=== PATIENT | female | born 1980 | race Caucasian/White ===

== ENCOUNTER 2017-07-05 21:17 | Emergency (ER) | payer MEDICAID ==
[~2017-07-05] VITALS: Ht 157.5 cm; Wt 80.5 kg
[~2017-07-05 21:17] MED LIST: ANTI10DR6 EACH EAR; CLIN-79 PO; CLIN-80 PO; CLIN150C2 PO; CODE120S2 PO; COROTSUS OT; CYCL-1 PO; DIAZ5TAB PO; ERYT400T83 PO; GUAI120015 PO; HYDR-565 PO; HYDR1TAB PO; IBUP-1984 PO; IBUP-1986 PO; NO HOME MEDS
[2017-07-05 21:50] VITALS: BP 140/83
== END 2017-07-06 01:26 | disposition left against medical advice (07) ==
LOC: ER 21:19
DX: M54.9 Dorsalgia, unspecified (principal); Z53.21 Procedure and treatment not carried out due to patient leaving prior to being seen by health care provider

== ENCOUNTER 2018-01-12 19:56 | Emergency (ER) | payer MEDICAID ==
[~2018-01-12] VITALS: Ht 157.5 cm; Wt 66.0 kg
[~2018-01-12 19:56] MED LIST changes: -CLIN-79 PO; -CLIN-80 PO; +CLIN150C8 PO; +CLIN300C85 PO; +HYDR-4353 PO; -HYDR-565 PO
[2018-01-12 20:09] VITALS: BP 131/101
[2018-01-12] MEDS ORDERED: LIDOcaine 1.5% w/epinephrine 1:200,000 5ml ampul IJ ONE (20:25)
[2018-01-12] MEDS ORDERED: CEPH-572 PO (20:29)
[2018-01-12] MEDS ORDERED: SULF1TAB49 PO (20:29)
== END 2018-01-12 21:33 | disposition home or self-care (01) ==
LOC: ER 19:57
DX: L02.415 Cutaneous abscess of right lower limb (principal); Z88.0 Allergy status to penicillin; Z91.018 Allergy to other foods
CPT/HCPCS: 10060; 99283; J3490

== ENCOUNTER 2018-04-03 08:51 | Emergency (ER) | payer MEDICAID ==
[~2018-04-03] VITALS: Ht 157.5 cm; Wt 66.5 kg
[2018-04-03 08:55] VITALS: BP 163/100
[2018-04-03 09:49] LABS: BASOPHILS % (AUTO) 0.7 % (0-1); EOSINOPHILS # (AUTO) 0.1 X10'3 (0-0.9); EOSINOPHILS % (AUTO) 1.6 % (0-6); HEMOGLOBIN 13.3 g/dl (12.0-16.0); LYMPHOCYTES % (AUTO) 29.7 % (21-51); MEAN CORPUSCULAR HEMOGLOBIN 27.6 PG (27.0-31.0); MEAN CORPUSCULAR HGB CONC 32.3 % (33.0-36.5); MEAN CORPUSCULAR VOLUME 85.3 FL (78-98); MEAN PLATELET VOLUME 8.1 FL (7.4-10.4); MONOCYTES # (AUTO) 0.7 X10'3 (0-0.9); NEUTROPHILS # (AUTO) 3.9 X10'3 (1.8-7.7); PLATELET COUNT 281 X10'3 (140-440); RED BLOOD COUNT 4.81 X10'6 (4.20-5.60); WHITE BLOOD COUNT 6.7 X10'3 (4.5-11.0)
[2018-04-03] MEDS ORDERED: ondansetron 4mg rapidly disintigrating tab PO ONE (09:50)
[2018-04-03] MEDS ORDERED: ibuprofen tablet 400 MG TABLET PO ONE (09:50)
[2018-04-03] MEDS ORDERED: HYDROcodone/acetaminophen 5mg/325mg tablet PO ONE (09:50)
[2018-04-03 09:52] LABS: URINE HCG NEGATIVE (NEG)
[2018-04-03 10:00] LABS: PROTHROMBIN TIME 9.9 SECONDS (9.0-12.0)
[2018-04-03 10:03] LABS: CLARITY,URINE CLEAR (Clear); COLOR,URINE YELLOW (Yellow); GLUCOSE, URINE NEGATIVE (Neg); KETONES,URINE TRACE mg/dl (Neg); LEUKOCYTE ESTERASE ,URINE TRACE (Neg); NITRITES, URINE NEGATIVE (Neg); OCCULT BLOOD,URINE NEGATIVE (Neg); PH,URINE 6.5 (4.8-8.0); PROTEIN,URINE NEGATIVE (Neg)
[2018-04-03 10:04] LABS: ALANINE AMINOTRANSFERASE 35 U/L (12-78); ALBUMIN 3.5 G/DL (3.4-5.0); ALBUMIN/GLOBULIN RATIO 0.7 (1.1-1.5); ALKALINE PHOSPHATASE 135 IU/L (46-116); ANION GAP 10 (8-16); ASPARTATE AMINO TRANSFERASE 24 U/L (10-37); BILIRUBIN,TOTAL 0.7 MG/DL (0.1-1.0); BLOOD UREA NITROGEN 10 MG/DL (7-18); BUN/CREATININE RATIO 12.2 (6.6-38.0); CHLORIDE 103 MMOL/L (99-107); CREATININE 0.82 MG/DL (0.40-0.90); GLUCOSE 78 MG/DL (70-104); LIPASE 117 U/L (73-393); POTASSIUM 3.4 MMOL/L (3.5-5.1); SODIUM 139 MMOL/L (135-145); TOTAL CARBON DIOXIDE 25.6 MMOL/L (24-32); TOTAL PROTEIN 8.2 G/DL (6.4-8.2); eGFR 79 ML/MIN
[2018-04-03 10:08] LABS: UA COLLECTION TYPE CLN CATCH MIDSTREAM
[2018-04-03 10:11] LABS: MUCUS STRANDS FEW /LPF (Neg); SQUAMOUS EPITHELIAL CELL,UR FEW /LPF (FEW)
[2018-04-03 10:13] LABS: TRICHOMONAS,URINE FEW /HPF (NEGATIVE)
[2018-04-03 10:14] LABS: BACTERIA,URINE FEW /HPF (Neg); RBC,URINE 0-2 /HPF (0-2)
[2018-04-03] MEDS ORDERED: BISA-155 PO (10:19)
[2018-04-03] MEDS ORDERED: HYDR-3965 PO (10:19)
[2018-04-03] MEDS ORDERED: ONDA8TAB6 PO (10:19)
[2018-04-03] MEDS ORDERED: METR500T PO (10:22)
== END 2018-04-03 10:31 | disposition home or self-care (01) ==
LOC: ER 08:52
DX: R10.31 Right lower quadrant pain (principal); A59.9 Trichomoniasis, unspecified; Z88.0 Allergy status to penicillin; Z91.018 Allergy to other foods; Z79.2 Long term (current) use of antibiotics; Z79.899 Other long term (current) drug therapy; Z98.890 Other specified postprocedural states
CPT/HCPCS: 36415; 80053; 81001; 81025; 83690; 85025; 85610; 87088; 99284

== ENCOUNTER 2018-07-02 10:48 | Emergency (ER) | payer MEDICAID ==
[~2018-07-02] VITALS: Ht 157.5 cm; Wt 62.8 kg
[~2018-07-02 10:48] MED LIST changes: +BISA-155 PO; +CLIN-96 PO; -CLIN300C85 PO; +ONDA8TAB6 PO
[2018-07-02 11:00] VITALS: BP 167/96
[2018-07-02] MEDS ORDERED: azithromycin 250mg tablet PO ONE (11:20)
[2018-07-02] MEDS ORDERED: CefTRIAXone 1000mg IM Kit (w/lidocaine diluent) IM ONE (11:20)
--- NOTE | 2018-07-02 12:03 | NUR ---
PATIENT IS HESITANT TO TAKE PRESCRIBED ANTIBIOTICS (ROCEPHIN AND AZITHROMYCIN) AND STATES THAT SHE DOES NOT WANT TO TAKE ANY MEDICATIONS UNLESS NECESSARY. PATIENT IS CONCERNED THAT MEDS MAY AFFECT . DR. RODRIGUEZ INFORMED OF PATIENT REFUSAL TO RECEIVE ANTIBIOTICS AT THIS TIME.
--- NOTE | 2018-07-02 12:05 | NUR ---
PT REFUSING PELVIC EXAM AND REPORTS SHE WILL BE GOING TO "HER PERSON". DR RODRIGUEZ INFORMED OF PT REFUSAL.
== END 2018-07-02 13:50 | disposition home or self-care (01) ==
LOC: ER 10:49
DX: O20.0 Threatened abortion (principal); F17.200 Nicotine dependence, unspecified, uncomplicated; Z79.899 Other long term (current) drug therapy; Z88.0 Allergy status to penicillin; Z91.018 Allergy to other foods; Z3A.01 Less than 8 weeks gestation of pregnancy
CPT/HCPCS: 36415; 76817; 84702; 87491; 87591; 99284; J0696

== ENCOUNTER 2018-11-05 16:17 | Emergency (ER) | payer MEDICAID ==
[~2018-11-05] VITALS: Ht 157.5 cm; Wt 62.0 kg
[2018-11-05 16:24] VITALS: BP 146/89
[2018-11-05] MEDS ORDERED: TETanus/Pertussis (Acell)/Diphther VAC/PF (Tdap-Adult) 0.5ml syringe IM ONE (17:05)
[2018-11-05] MEDS ORDERED: LIDOcaine 1% w/epiNEPHrine 1:200,000 30ml vial IM ONE (17:05)
[2018-11-05] MEDS ORDERED: CEPH-572 PO (17:23)
[2018-11-05] MEDS ORDERED: SULF1TAB49 PO (17:23)
== END 2018-11-05 17:51 | disposition home or self-care (01) ==
LOC: ER 16:17
DX: L02.31 Cutaneous abscess of buttock (principal); Z98.890 Other specified postprocedural states; Z88.0 Allergy status to penicillin; Z91.011 Allergy to milk products; Z91.018 Allergy to other foods; Z79.899 Other long term (current) drug therapy
CPT/HCPCS: 10060; 99283

== ENCOUNTER 2018-12-24 19:39 | Emergency (ER) | payer MEDICAID ==
[~2018-12-24] VITALS: Ht 157.5 cm; Wt 64.1 kg
[2018-12-24] MEDS ORDERED: ketorolac trometh inj. 60 MG/2 ML VIAL IM ONE (21:35)
[2018-12-24 22:05] VITALS: BP 134/102
== END 2018-12-24 22:07 | disposition home or self-care (01) ==
LOC: ER 19:40
DX: S60.052A Contusion of left little finger without damage to nail, initial encounter (principal); Z98.890 Other specified postprocedural states; Z88.0 Allergy status to penicillin; Z91.011 Allergy to milk products; Z79.899 Other long term (current) drug therapy; W23.0XXA Caught, crushed, jammed, or pinched between moving objects, initial encounter; Y93.89 Activity, other specified; Y92.89 Other specified places as the place of occurrence of the external cause; Y99.9 Unspecified external cause status
CPT/HCPCS: 29130; 73130; 99283; J1885

== ENCOUNTER 2019-01-14 14:59 | Emergency (ER) | payer MEDICAID ==
[~2019-01-14] VITALS: Ht 157.5 cm; Wt 64.1 kg
[2019-01-14] MEDS ORDERED: clindamycin phosphate 150mg/ml inj. IM ONE (15:35)
[2019-01-14] MEDS ORDERED: CEPH500C5 PO (15:41)
[2019-01-14] MEDS ORDERED: SULF1TAB49 PO (15:41)
[2019-01-14 17:30] VITALS: BP 121/70
== END 2019-01-14 17:31 | disposition home or self-care (01) ==
LOC: ER 15:00
DX: L03.116 Cellulitis of left lower limb (principal); Z98.890 Other specified postprocedural states; Z88.0 Allergy status to penicillin; Z91.011 Allergy to milk products; Z79.2 Long term (current) use of antibiotics; Z79.899 Other long term (current) drug therapy
CPT/HCPCS: 96372; 99283; J3490

== ENCOUNTER 2019-03-10 01:38 | Emergency (ER) | payer MEDICAID, OTHER ==
[~2019-03-10] VITALS: Ht 157.5 cm; Wt 63.0 kg
[~2019-03-10 01:38] MED LIST changes: +CLIN-90 PO; -CLIN-96 PO
[2019-03-10 01:41] VITALS: BP 184/118
[2019-03-10] MEDS ORDERED: LOPE2CAP PO (01:57)
== END 2019-03-10 02:09 | disposition home or self-care (01) ==
LOC: ER 01:39
DX: R19.7 Diarrhea, unspecified (principal); R10.9 Unspecified abdominal pain; Z98.890 Other specified postprocedural states; Z88.0 Allergy status to penicillin; Z91.011 Allergy to milk products; Z79.899 Other long term (current) drug therapy
CPT/HCPCS: 99282

== ENCOUNTER 2019-03-19 15:39 | Emergency (ER) | payer OTHER ==
[~2019-03-19] VITALS: Ht 157.5 cm; Wt 65.0 kg
[~2019-03-19 15:39] MED LIST changes: +LOPE2CAP PO
[2019-03-19 16:05] VITALS: BP 148/94
[2019-03-19] MEDS ORDERED: AMOX500C2 PO (17:35)
== END 2019-03-19 17:46 | disposition home or self-care (01) ==
LOC: ER 15:40
DX: K04.7 Periapical abscess without sinus (principal); R50.9 Fever, unspecified; J02.9 Acute pharyngitis, unspecified; Z98.890 Other specified postprocedural states; Z88.0 Allergy status to penicillin; Z91.011 Allergy to milk products; Z79.2 Long term (current) use of antibiotics; Z79.899 Other long term (current) drug therapy
CPT/HCPCS: 99283

== ENCOUNTER 2019-04-02 12:17 | Emergency (ER) | payer MEDICAID, OTHER ==
[~2019-04-02] VITALS: Ht 157.5 cm; Wt 68.5 kg
[~2019-04-02 12:17] MED LIST changes: +AMOX500C2 PO
[2019-04-02 13:16] LABS: BASOPHILS # (AUTO) 0.1 X10'3 (0-0.2); BASOPHILS % (AUTO) 0.5 % (0-1); EOSINOPHILS # (AUTO) 0.1 X10'3 (0-0.9); EOSINOPHILS % (AUTO) 0.8 % (0-6); HEMOGLOBIN 13.1 g/dl (12.0-16.0); LYMPHOCYTES # (AUTO) 3.4 X10'3 (1.1-4.8); LYMPHOCYTES % (AUTO) 36.4 % (21-51); MEAN CORPUSCULAR HEMOGLOBIN 29.2 PG (27.0-31.0); MEAN CORPUSCULAR HGB CONC 32.8 g/dL (33.0-36.5); MONOCYTES # (AUTO) 0.8 X10'3 (0-0.9); MONOCYTES % (AUTO) 8.9 % (2-12); NEUTROPHILS # (AUTO) 4.9 X10'3 (1.8-7.7); NEUTROPHILS % (AUTO) 53.4 % (42-75); PLATELET COUNT 258 X10'3 (140-440); RED CELL DISTRIBUTION WIDTH 14.7 % (11.5-14.5); WHITE BLOOD COUNT 9.2 X10'3 (4.5-11.0)
[2019-04-02 13:18] LABS: URINE HCG POSITIVE (NEG)
[2019-04-02 13:21] LABS: CLARITY,URINE CLEAR (Clear); COLOR,URINE STRAW (Yellow); GLUCOSE, URINE NEGATIVE (Neg); KETONES,URINE NEGATIVE (Neg); LEUKOCYTE ESTERASE ,URINE NEGATIVE (Neg); NITRITES, URINE NEGATIVE (Neg); OCCULT BLOOD,URINE NEGATIVE (Neg); PROTEIN,URINE NEGATIVE (Neg); UROBILINOGEN,URINE 0.2 E.U/dL (0.2-1.0)
[2019-04-02 13:27] LABS: UA COLLECTION TYPE CLN CATCH MIDSTREAM
[2019-04-02 13:33] LABS: ALANINE AMINOTRANSFERASE 22 U/L (12-78); ALBUMIN 3.6 G/DL (3.4-5.0); ALKALINE PHOSPHATASE 86 IU/L (46-116); ANION GAP 9 (8-16); ASPARTATE AMINO TRANSFERASE 17 U/L (10-37); BLOOD UREA NITROGEN 17 MG/DL (7-18); BUN/CREATININE RATIO 23.9 (6.6-38.0); CALCIUM 8.8 MG/DL (8.5-10.1); CHLORIDE 105 MMOL/L (99-107); CREATININE 0.71 MG/DL (0.40-0.90); ETHANOL < 0.010 GM/DL (0.0-0.010); GLUCOSE 94 MG/DL (70-104); POTASSIUM 4.2 MMOL/L (3.5-5.1); SODIUM 139 MMOL/L (135-145); TOTAL CARBON DIOXIDE 25.2 MMOL/L (24-32); TOTAL PROTEIN 7.1 G/DL (6.4-8.2); eGFR > 90 ML/MIN
[2019-04-02 13:34] LABS: URINE AMPHETAMINE SCREEN NEGATIVE (Neg); URINE BARBITUATE SCREEN NEGATIVE (Neg); URINE BENZODIAZEPINES SCREEN NEGATIVE (Neg); URINE CANNABINOID SCREEN NEGATIVE (Neg); URINE COCAINE SCREEN NEGATIVE (Neg); URINE METHADONE SCREEN NEGATIVE (Neg); URINE OPIATE SCREEN NEGATIVE (Neg); URINE PHENCYCLIDINE SCREEN NEGATIVE (Neg)
[2019-04-02 14:06] LABS: ACETAMINOPHEN < 2.0 UG/ML (10-30)
[2019-04-02] MEDS ORDERED: diphenhydrAMINE 25mg capsule PO ONE (14:25)
[2019-04-02] MEDS ORDERED: DIPH25CA83 PO (14:32)
[2019-04-02 14:35] VITALS: BP 156/86
== END 2019-04-02 14:37 | disposition home or self-care (01) ==
LOC: ER 12:18
DX: O9A.219 Injury, poisoning and certain other consequences of external causes complicating pregnancy, unspecified trimester (principal); O99.340 Other mental disorders complicating pregnancy, unspecified trimester; S61.512A Laceration without foreign body of left wrist, initial encounter; Z98.890 Other specified postprocedural states; Z88.0 Allergy status to penicillin; Z91.011 Allergy to milk products; Z79.899 Other long term (current) drug therapy; X83.8XXA Intentional self-harm by other specified means, initial encounter; Y93.89 Activity, other specified; Y92.89 Other specified places as the place of occurrence of the external cause; Y99.8 Other external cause status
CPT/HCPCS: 36415; 80053; 80305; 80320; 80329; 81003; 81025; 85025; 99283

== ENCOUNTER 2019-04-09 17:51 | Emergency (ER) | payer MEDICAID, OTHER ==
[~2019-04-09] VITALS: Ht 157.5 cm; Wt 70.2 kg
[~2019-04-09 17:51] MED LIST changes: +DIPH25CA83 PO
[2019-04-09 18:27] LABS: URINE HCG POSITIVE (NEG)
[2019-04-09 18:28] LABS: CLARITY,URINE CLEAR (Clear); COLOR,URINE STRAW (Yellow); GLUCOSE, URINE NEGATIVE (Neg); KETONES,URINE NEGATIVE (Neg); LEUKOCYTE ESTERASE ,URINE NEGATIVE (Neg); NITRITES, URINE NEGATIVE (Neg); OCCULT BLOOD,URINE TRACE-INTACT (Neg); PROTEIN,URINE NEGATIVE (Neg); UROBILINOGEN,URINE 0.2 E.U/dL (0.2-1.0)
[2019-04-09 18:30] LABS: UA COLLECTION TYPE CLN CATCH MIDSTREAM
[2019-04-09 18:44] LABS: BACTERIA,URINE NONE SEEN /HPF (Neg); RBC,URINE 0-2 /HPF (0-2); SQUAMOUS EPITHELIAL CELL,UR FEW /LPF (FEW); WBC,URINE NONE SEEN /HPF (0-4)
[2019-04-09 20:02] LABS: BASOPHILS # (AUTO) 0.1 X10'3 (0-0.2); BASOPHILS % (AUTO) 0.8 % (0-1); EOSINOPHILS # (AUTO) 0.1 X10'3 (0-0.9); EOSINOPHILS % (AUTO) 1.4 % (0-6); HEMATOCRIT 40.4 % (35.0-45.0); HEMOGLOBIN 13.7 g/dl (12.0-16.0); LYMPHOCYTES # (AUTO) 2.8 X10'3 (1.1-4.8); LYMPHOCYTES % (AUTO) 37.8 % (21-51); MEAN CORPUSCULAR HEMOGLOBIN 29.7 PG (27.0-31.0); MEAN CORPUSCULAR HGB CONC 33.9 g/dL (33.0-36.5); MEAN CORPUSCULAR VOLUME 87.5 FL (78-98); MEAN PLATELET VOLUME 7.9 FL (7.4-10.4); MONOCYTES # (AUTO) 1.1 X10'3 (0-0.9); MONOCYTES % (AUTO) 14.4 % (2-12); NEUTROPHILS # (AUTO) 3.4 X10'3 (1.8-7.7); NEUTROPHILS % (AUTO) 45.6 % (42-75); PLATELET COUNT 202 X10'3 (140-440); RED BLOOD COUNT 4.62 X10'6 (4.20-5.60); RED CELL DISTRIBUTION WIDTH 14.8 % (11.5-14.5); WHITE BLOOD COUNT 7.5 X10'3 (4.5-11.0)
[2019-04-09 20:08] LABS: ALANINE AMINOTRANSFERASE 27 U/L (12-78); ALBUMIN 3.4 G/DL (3.4-5.0); ALBUMIN/GLOBULIN RATIO 0.9 (1.1-1.5); ALKALINE PHOSPHATASE 82 IU/L (46-116); ANION GAP 4 (8-16); ASPARTATE AMINO TRANSFERASE 21 U/L (10-37); BILIRUBIN,TOTAL 0.4 MG/DL (0.1-1.0); BLOOD UREA NITROGEN 13 MG/DL (7-18); BUN/CREATININE RATIO 19.4 (6.6-38.0); CALCIUM 8.3 MG/DL (8.5-10.1); CHLORIDE 107 MMOL/L (99-107); CREATININE 0.67 MG/DL (0.40-0.90); GLUCOSE 81 MG/DL (70-104); POTASSIUM 3.8 MMOL/L (3.5-5.1); SODIUM 140 MMOL/L (135-145); TOTAL CARBON DIOXIDE 28.8 MMOL/L (24-32); eGFR > 90 ML/MIN
[2019-04-09 20:16] VITALS: BP 127/72
== END 2019-04-09 20:48 | disposition home or self-care (01) ==
LOC: ER 17:52
DX: O26.891 Other specified pregnancy related conditions, first trimester (principal); R10.12 Left upper quadrant pain; R10.32 Left lower quadrant pain; O99.331 Smoking (tobacco) complicating pregnancy, first trimester; F17.200 Nicotine dependence, unspecified, uncomplicated; Z3A.01 Less than 8 weeks gestation of pregnancy; Z98.890 Other specified postprocedural states; Z88.0 Allergy status to penicillin; Z91.011 Allergy to milk products
CPT/HCPCS: 29125; 36415; 80053; 81001; 81025; 85025; 99284

== ENCOUNTER 2019-04-23 21:01 | Emergency (ER) | payer MEDICAID ==
[~2019-04-23] VITALS: Ht 157.5 cm; Wt 72.7 kg
[2019-04-23 21:46] LABS: URINE HCG POSITIVE (NEG)
[2019-04-23 21:48] LABS: CLARITY,URINE CLEAR (Clear); COLOR,URINE YELLOW (Yellow); GLUCOSE, URINE NEGATIVE (Neg); KETONES,URINE NEGATIVE (Neg); LEUKOCYTE ESTERASE ,URINE NEGATIVE (Neg); NITRITES, URINE NEGATIVE (Neg); OCCULT BLOOD,URINE NEGATIVE (Neg); PROTEIN,URINE NEGATIVE (Neg); UA COLLECTION TYPE CLN CATCH MIDSTREAM; UROBILINOGEN,URINE 0.2 E.U/dL (0.2-1.0)
[2019-04-23 22:00] LABS: BASOPHILS # (AUTO) 0.1 X10'3 (0-0.2); BASOPHILS % (AUTO) 0.4 % (0-1); EOSINOPHILS # (AUTO) 0.1 X10'3 (0-0.9); EOSINOPHILS % (AUTO) 0.5 % (0-6); HEMATOCRIT 41.1 % (35.0-45.0); HEMOGLOBIN 13.7 g/dl (12.0-16.0); LYMPHOCYTES # (AUTO) 1.8 X10'3 (1.1-4.8); LYMPHOCYTES % (AUTO) 13.9 % (21-51); MEAN CORPUSCULAR HEMOGLOBIN 29.7 PG (27.0-31.0); MEAN CORPUSCULAR HGB CONC 33.4 g/dL (33.0-36.5); MEAN CORPUSCULAR VOLUME 88.9 FL (78-98); MEAN PLATELET VOLUME 7.9 FL (7.4-10.4); MONOCYTES # (AUTO) 0.6 X10'3 (0-0.9); MONOCYTES % (AUTO) 4.2 % (2-12); NEUTROPHILS # (AUTO) 10.6 X10'3 (1.8-7.7); PLATELET COUNT 278 X10'3 (140-440); RED BLOOD COUNT 4.62 X10'6 (4.20-5.60); RED CELL DISTRIBUTION WIDTH 14.6 % (11.5-14.5); WHITE BLOOD COUNT 13.1 X10'3 (4.5-11.0)
[2019-04-23 22:05] LABS: ALANINE AMINOTRANSFERASE 24 U/L (12-78); ALBUMIN 3.8 G/DL (3.4-5.0); ALKALINE PHOSPHATASE 77 IU/L (46-116); ANION GAP 12 (8-16); ASPARTATE AMINO TRANSFERASE 16 U/L (10-37); BILIRUBIN,TOTAL 0.7 MG/DL (0.1-1.0); BLOOD UREA NITROGEN 20 MG/DL (7-18); BUN/CREATININE RATIO 32.3 (6.6-38.0); CALCIUM 8.6 MG/DL (8.5-10.1); CHLORIDE 105 MMOL/L (99-107); CREATININE 0.62 MG/DL (0.40-0.90); GLUCOSE 88 MG/DL (70-104); LIPASE 89 U/L (73-393); POTASSIUM 3.9 MMOL/L (3.5-5.1); SODIUM 142 MMOL/L (135-145); TOTAL CARBON DIOXIDE 25.4 MMOL/L (24-32); TOTAL PROTEIN 7.6 G/DL (6.4-8.2); eGFR > 90 ML/MIN
[2019-04-23] MEDS ORDERED: ondansetron/PF 4mg/2ml inj IV ONE (23:55)
[2019-04-23] MEDS ORDERED: normal saline 1000ML IV soln IVB ONE (23:55)
[2019-04-23 23:57] LABS: MAGNESIUM 1.9 MG/DL (1.5-2.4)
[2019-04-24 01:49] VITALS: BP 119/65
[2019-04-24 02:01] LABS: BETA HCG,QUANTITATIVE 60721 mIU/ml
== END 2019-04-24 01:52 | disposition home or self-care (01) ==
LOC: ER 21:02
DX: O21.9 Vomiting of pregnancy, unspecified (principal); O26.891 Other specified pregnancy related conditions, first trimester; R10.9 Unspecified abdominal pain; F17.200 Nicotine dependence, unspecified, uncomplicated; Z98.890 Other specified postprocedural states; Z88.0 Allergy status to penicillin; Z91.018 Allergy to other foods; Z79.2 Long term (current) use of antibiotics; Z79.899 Other long term (current) drug therapy; Z3A.01 Less than 8 weeks gestation of pregnancy
CPT/HCPCS: 36415; 76801; 80053; 81003; 81025; 83690; 83735; 84702; 85025; 96361; 96374; 99284; J2405; J7030

== ENCOUNTER 2019-05-05 22:49 | Emergency (ER) | payer MEDICAID ==
[~2019-05-05] VITALS: Ht 157.5 cm; Wt 69.8 kg
[~2019-05-05 22:49] MED LIST changes: -AMOX500C2 PO
[2019-05-05 22:51] VITALS: BP 170/97
== END 2019-05-05 23:55 | disposition left against medical advice (07) ==
LOC: ER 22:49
DX: R10.32 Left lower quadrant pain (principal); Z53.21 Procedure and treatment not carried out due to patient leaving prior to being seen by health care provider

== ENCOUNTER 2019-05-19 18:20 | Emergency (ER) | payer MEDICAID ==
[~2019-05-19] VITALS: Ht 157.5 cm; Wt 68.0 kg
--- NOTE | 2019-05-19 19:01 | NUR ---
POISON CONTROL CONTACTED, RECOMMEND CMP, TYLENOL LEVEL, ASPIRIN, WELFARE MANAGER FOR 6HRS FROM TIME OF ARRIVAL
[2019-05-19 19:09] LABS: ALANINE AMINOTRANSFERASE 18 U/L (12-78); ALBUMIN 3.8 G/DL (3.4-5.0); ALBUMIN/GLOBULIN RATIO 1.1 (1.1-1.5); ALKALINE PHOSPHATASE 78 IU/L (46-116); ANION GAP 8 (8-16); ASPARTATE AMINO TRANSFERASE 20 U/L (10-37); BILIRUBIN,TOTAL 0.4 MG/DL (0.1-1.0); BLOOD UREA NITROGEN 7 MG/DL (7-18); BUN/CREATININE RATIO 9.2 (6.6-38.0); CALCIUM 8.8 MG/DL (8.5-10.1); CHLORIDE 107 MMOL/L (99-107); CREATININE 0.76 MG/DL (0.40-0.90); ETHANOL < 0.010 GM/DL (0.0-0.010); GLUCOSE 60 MG/DL (70-104); POTASSIUM 3.3 MMOL/L (3.5-5.1); SODIUM 142 MMOL/L (135-145); TOTAL CARBON DIOXIDE 27.4 MMOL/L (24-32); TOTAL PROTEIN 7.4 G/DL (6.4-8.2); eGFR 86 ML/MIN
[2019-05-19 19:10] LABS: BASOPHILS % (AUTO) 0.5 % (0-1); EOSINOPHILS # (AUTO) 0.2 X10'3 (0-0.9); EOSINOPHILS % (AUTO) 2.1 % (0-6); HEMATOCRIT 39.4 % (35.0-45.0); HEMOGLOBIN 13.2 g/dl (12.0-16.0); LYMPHOCYTES # (AUTO) 3.8 X10'3 (1.1-4.8); LYMPHOCYTES % (AUTO) 44.3 % (21-51); MEAN CORPUSCULAR HEMOGLOBIN 30.1 PG (27.0-31.0); MEAN CORPUSCULAR HGB CONC 33.6 g/dL (33.0-36.5); MEAN CORPUSCULAR VOLUME 89.5 FL (78-98); MEAN PLATELET VOLUME 8.4 FL (7.4-10.4); MONOCYTES # (AUTO) 0.8 X10'3 (0-0.9); MONOCYTES % (AUTO) 9.7 % (2-12); NEUTROPHILS # (AUTO) 3.7 X10'3 (1.8-7.7); NEUTROPHILS % (AUTO) 43.4 % (42-75); PLATELET COUNT 222 X10'3 (140-440); RED CELL DISTRIBUTION WIDTH 13.9 % (11.5-14.5); WHITE BLOOD COUNT 8.5 X10'3 (4.5-11.0)
[2019-05-19 19:11] LABS: ACETAMINOPHEN < 2.0 UG/ML (10-30)
[2019-05-19 19:12] LABS: URINE HCG NEGATIVE (NEG)
[2019-05-19 19:24] LABS: URINE AMPHETAMINE SCREEN POSITIVE (Neg); URINE BARBITUATE SCREEN NEGATIVE (Neg); URINE BENZODIAZEPINES SCREEN POSITIVE (Neg); URINE CANNABINOID SCREEN NEGATIVE (Neg); URINE COCAINE SCREEN NEGATIVE (Neg); URINE METHADONE SCREEN NEGATIVE (Neg); URINE OPIATE SCREEN NEGATIVE (Neg); URINE PHENCYCLIDINE SCREEN NEGATIVE (Neg)
[2019-05-19] MEDS ORDERED: QUET25TA PO (19:25)
[2019-05-19] MEDS ORDERED: DOXY150T5 PO (19:25)
[2019-05-19] MEDS ORDERED: CLON-529 PO (19:25)
[2019-05-19] MEDS ORDERED: DIAZ5TAB4 PO (19:25)
--- NOTE | 2019-05-19 19:49 | NUR ---
Patient with Dr. Toledo at this time.
[2019-05-19 20:00] VITALS: BP 157/95
== END 2019-05-19 20:06 | disposition home or self-care (01) ==
LOC: ER 18:20
DX: T42.4X2A Poisoning by benzodiazepines, intentional self-harm, initial encounter (principal); T46.5X2A Poisoning by other antihypertensive drugs, intentional self-harm, initial encounter; T45.0X2A Poisoning by antiallergic and antiemetic drugs, intentional self-harm, initial encounter; T51.8X2A Toxic effect of other alcohols, intentional self-harm, initial encounter; Z98.890 Other specified postprocedural states; Z88.0 Allergy status to penicillin; Z91.018 Allergy to other foods; Z91.011 Allergy to milk products; Z79.899 Other long term (current) drug therapy; Y92.89 Other specified places as the place of occurrence of the external cause
CPT/HCPCS: 36415; 80053; 80305; 80320; 80329; 81025; 85025; 93005; 99284

== ENCOUNTER 2021-06-25 17:33 | Emergency (ER) | payer MEDICAID ==
[~2021-06-25] VITALS: Ht 157.5 cm; Wt 85.5 kg
[~2021-06-25 17:33] MED LIST changes: -ANTI10DR6 EACH EAR; -BISA-155 PO; -CLIN-90 PO; -CLIN150C2 PO; -CLIN150C8 PO; +CLON-529 PO; -CODE120S2 PO; -COROTSUS OT; -CYCL-1 PO; -DIAZ5TAB PO; +DIAZ5TAB4 PO; +DOXY150T5 PO; -ERYT400T83 PO; -GUAI120015 PO; -HYDR-4353 PO; -HYDR1TAB PO; -IBUP-1984 PO; -IBUP-1986 PO; -LOPE2CAP PO; -NO HOME MEDS; -ONDA8TAB6 PO; +QUET25TA PO
[2021-06-25 22:51] VITALS: BP 157/96
--- NOTE | 2021-06-25 22:58 | NUR ---
finger splint applied to R index finger
== END 2021-06-26 01:33 | disposition home or self-care (01) ==
LOC: ER 17:33
DX: S62.664A Nondisplaced fracture of distal phalanx of right ring finger, initial encounter for closed fracture (principal); I10 Essential (primary) hypertension; F17.200 Nicotine dependence, unspecified, uncomplicated; Z87.01 Personal history of pneumonia (recurrent); Z87.81 Personal history of (healed) traumatic fracture; Z88.0 Allergy status to penicillin; Z91.011 Allergy to milk products; Z88.8 Allergy status to other drugs, medicaments and biological substances; Z79.2 Long term (current) use of antibiotics; Z79.899 Other long term (current) drug therapy; X58.XXXA Exposure to other specified factors, initial encounter; Y93.89 Activity, other specified; Y92.89 Other specified places as the place of occurrence of the external cause; Y99.8 Other external cause status
CPT/HCPCS: 29130; 99283

== ENCOUNTER 2023-07-10 10:30 | Emergency (ER) | payer BC, MEDICAID ==
[~2023-07-10] VITALS: Ht 157.5 cm; Wt 104.4 kg
[2023-07-10 10:57] VITALS: BP 178/104; PULSE 83; RESP 18; TEMP 98.3; O2SAT 96
[2023-07-10] MEDS ORDERED: HYDR-3965 PO (11:56)
== END 2023-07-10 12:07 | disposition home or self-care (01) ==
LOC: ER 10:31
DX: S92.405A Nondisplaced unspecified fracture of left great toe, initial encounter for closed fracture (principal); I10 Essential (primary) hypertension; F31.9 Bipolar disorder, unspecified; Z91.011 Allergy to milk products; Z88.0 Allergy status to penicillin; Z88.8 Allergy status to other drugs, medicaments and biological substances; Z91.018 Allergy to other foods; X58.XXXA Exposure to other specified factors, initial encounter; Y93.89 Activity, other specified; Y92.89 Other specified places as the place of occurrence of the external cause; Y99.8 Other external cause status
CPT/HCPCS: 73660; 99283; L4360